=== PATIENT | female | born 1990 | race Caucasian/White ===

== ENCOUNTER → 2019-06-06 | Outpatient (CLI) | payer OTHER ==
[~2019-06-06] MED LIST: IBUP80TA PO; MAPA500T2 PO; NEXIUM PO; PRENTAB7 PO
--- NOTE | 2019-06-06 15:26 | REP ---
Right ankle: Five views. History: Injury. Findings: There is a small accessory ossicle adjacent to the lateral malleolar tip. There is mild lateral soft tissue swelling. The ankle mortise is intact. No fractures seen. There is a tiny accessory ossicle adjacent to the medial malleolus as well. Impression: Tiny old accessory ossicles. No fracture seen. Lateral soft tissue swelling. Otherwise negative. Electronically Signed by Danny Vallejo MD 06/06/2019 03:17 P
--- NOTE | 2019-06-06 15:40 | REP ---
Right foot series: Four views. History: Foot pain after injury. Findings: Four views right foot demonstrate overall normal mineralization. No fracture or subluxation is seen. Impression: Negative radiographs of the right foot. Electronically Signed by Danny Vallejo MD 06/06/2019 03:31 P
== END ==
LOC: M LRY 14:14
PROVIDERS: ATTEND Nurse Practitioner Family
DX: S99.911A Unspecified injury of right ankle, initial encounter (principal); S99.921A Unspecified injury of right foot, initial encounter; X58.XXXA Exposure to other specified factors, initial encounter; Y92.89 Other specified places as the place of occurrence of the external cause
CPT/HCPCS: 73610; 73630; G0463

== ENCOUNTER → 2019-06-27 | Outpatient (CLI) | payer OTHER ==
[2019-06-27 10:03] LABS: APPEARANCE, URINE CLEAR (CLEAR); BACTERIA, URINE AUTO NEGATIVE (NEGATIVE); BILIRUBIN, URINE AUTO NEGATIVE (NEGATIVE); BLOOD, URINE BLOOD NEGATIVE (NEGATIVE); COLOR, URINE YELLOW (YELLOW); GLUCOSE, URINE (UA) AUTO NEGATIVE (NEGATIVE); KETONE, URINE AUTO NEGATIVE (NEGATIVE); LEUKOCYTE ESTERASE, URINE AUTO NEGATIVE (NEGATIVE); MUCUS, URINE SMALL (NEGATIVE); NITRITE, URINE AUTO NEGATIVE (NEGATIVE); PROTEIN, URINE AUTO NEGATIVE (NEGATIVE); RBC, URINE AUTO 1 /HPF (0-3); SPECIFIC GRAVITY URINE AUTO 1.005 (1.002-1.035); SQUAMOUS EPITHELIAL CELL UR AU 0 /HPF (0-6); UROBILINOGEN, URINE AUTO 0.2 mg/dL (0.0-2.0); WBC, URINE AUTO 0 /HPF (0-3)
[2019-06-27 10:42] LABS: COMPLEMENT C3 108 MG/DL (90-180); COMPLEMENT C4 24 MG/DL (10-40); CPK CREATINE PHOSPHOKINASE 94 U/L (26-192)
[2019-06-27 10:43] LABS: CREATININE,RANDOM URINE 46.9 MG/DL; HEPATITIS B SURFACE ANTIBODY POSITIVE (POSITIVE); TOTAL PROTEIN,RANDOM URINE 6.9 MG/DL (0.0-12.0)
[2019-06-27 10:54] LABS: HEPATITIS B SURFACE ANTIGEN NEGATIVE (NEGATIVE)
[2019-06-27 11:22] LABS: HEPATITIS C VIRUS ABY INDEX 0.4 INDEX (<0.8)
[2019-07-02 14:10] LABS: ALDOLASE 3.7 U/L (3.3-10.3); ANA (HEP2) Negative (.); ANTI DS-DNA AB Negative (Negative); ANTI PARVO VIRUS LEVEL IGG 2.7 index (0.0-0.8); ANTI PARVO VIRUS LEVEL IgM 0.1 index (0.0-0.8); HEPATITIS B CORE ANTIBODY IGG Negative (Negative); RNP ANTIBODY < 0.2 AI (0.0-0.9); SMITHS ANTIBODY < 0.2 AI (0.0-0.9); SSA SJOGRENS A <0.2 AI (0.0-0.9); SSB SJOGRENS B <0.2 AI (0.0-0.9)
== END ==
LOC: M LAB 09:12
PROVIDERS: ATTEND Internal Medicine Rheumatology
DX: M25.541 Pain in joints of right hand (principal)

== ENCOUNTER 2020-06-02 07:03 | Day surgery (SDC) | payer OTHER ==
[~2020-06-02] VITALS: Ht 170.2 cm; Wt 65.8 kg
[~2020-06-02 07:03] MED LIST changes: +NORG0.25; +NS 1,000 ML IV ONE; +PANT40TA29
[2020-06-02] MEDS ORDERED: LIDOCAINE 2% 100MG/5ML SDV (FOR ANES.) As Ordered ONE (07:52)
[2020-06-02] MEDS ORDERED: propofoL 200 MG/20 ML VIAL As Ordered ONE ×2 (07:52→08:10)
[2020-06-02] MEDS ORDERED: ONDANSETRON 4MG/2ML VIAL As Ordered ONE (08:01)
--- NOTE | 2020-06-02 08:20 | ROOR ---
Patient Name: Kristyn Lopez Procedure Date: 06/02/2020 8:02 AM Date of : 1990 Age: 29 Room: [facility] Gender: Female Note Status: Finalized Procedure: Upper GI endoscopy + Balloon Dilatation Indications: Dysphagia, Heartburn Providers: True Vargas MD Referring MD: MARY HERNANDEZ MD Requesting Provider: Medicines: Monitored Anesthesia Care Complications: No immediate complications. Procedure: Pre-Anesthesia Assessment: - The heart rate, respiratory rate, oxygen saturations, blood pressure, adequacy of pulmonary ventilation, and response to care were monitored throughout the procedure. The Endoscope was introduced through the mouth, and advanced to the second part of duodenum. The upper GI endoscopy was accomplished without difficulty. The patient tolerated the procedure well. Findings: The Z-line was regular and was found 40 cm from the incisors. Mucosal changes including ringed esophagus were found in the lower third of the esophagus. A TTS dilator was passed through the scope. Dilation with a 15-16.5-18 mm balloon dilator was performed to 18 mm. The dilation site was examined and showed mild mucosal disruption. No other significant abnormalities were identified in a careful examination of the stomach. The exam of the duodenum was otherwise normal. Impression: - Z-line regular, 40 cm from the incisors. - Esophageal mucosal changes consistent with eosinophilic esophagitis. Dilated. - No specimens collected. - The examination was otherwise normal. Recommendation: - Patient has a contact number available for emergencies. The signs and symptoms of potential delayed complications were discussed with the patient. Return to normal activities tomorrow. Written discharge instructions were provided to the patient. - Resume previous diet. - Discharge patient to home. - Follow an antireflux regimen. - Continue present medications. - Repeat upper endoscopy PRN for retreatment. - Return to referring physician. - The findings and recommendations were discussed with the patient. True Vargas MD True Vargas MD 06/02/2020 8:19:41 AM Electronically signed by True Vargas MD Number of Addenda: 0 Note Initiated On: 06/02/2020 8:02 AM Estimated Blood Loss: Estimated blood loss: none.
[2020-06-02 08:40] VITALS: BP 115/70
== END 2020-06-02 09:10 | disposition home or self-care (01) ==
LOC: M OPP 07:03
PROVIDERS: ATTEND Internal Medicine Gastroenterology
DX: K22.8 Other specified diseases of esophagus (principal); R13.10 Dysphagia, unspecified; R12 Heartburn; K20.0 Eosinophilic esophagitis; Z79.899 Other long term (current) drug therapy
CPT/HCPCS: 43249; J2405

== ENCOUNTER 2020-08-11 10:10 | Day surgery (SDC) | payer OTHER ==
[~2020-08-11] VITALS: Ht 170.2 cm; Wt 65.3 kg
[~2020-08-11 10:10] MED LIST changes: +PROZ10CA7 PO
[2020-08-11] MEDS ORDERED: propofoL 500 MG/50 ML VIAL As Ordered ONE (12:12)
[2020-08-11] MEDS ORDERED: LIDOCAINE 2% 100MG/5ML SDV (FOR ANES.) As Ordered ONE (12:12)
[2020-08-11] MEDS ORDERED: fentaNYL 100 MCG/2 ML INJECTION (J3010) As Ordered ONE (12:12)
[2020-08-11] MEDS ORDERED: ONDANSETRON 4MG/2ML VIAL As Ordered ONE (12:14)
--- NOTE | 2020-08-11 12:30 | ROOR ---
Patient Name: Kristyn Lopez Procedure Date: 08/11/2020 12:06 PM Date of : 1990 Age: 30 Room: [facility] Gender: Female Note Status: Finalized Procedure: Upper GI endoscopy + Balloon Dilatation Indications: Dysphagia, Follow-up of eosinophilic esophagitis, For therapy of eosinophilic esophagitis Providers: True Vargas MD Referring MD: MARY HERNANDEZ MD Requesting Provider: Medicines: Monitored Anesthesia Care Complications: No immediate complications. Procedure: Pre-Anesthesia Assessment: - The heart rate, respiratory rate, oxygen saturations, blood pressure, adequacy of pulmonary ventilation, and response to care were monitored throughout the procedure. The Endoscope was introduced through the mouth, and advanced to the second part of duodenum. The upper GI endoscopy was accomplished without difficulty. The patient tolerated the procedure well. Findings: The Z-line was regular and was found 40 cm from the incisors. No other significant abnormalities were identified in a careful examination of the stomach. The exam of the duodenum was otherwise normal. A TTS dilator was passed through the scope. Dilation with a 15-16.5-18 mm balloon and an 18-19-20 mm balloon dilator was performed to 20 mm in the entire esophagus. The exam was otherwise without abnormality. Impression: - Z-line regular, 40 cm from the incisors. - The examination was otherwise normal. - Dilation performed in the entire esophagus. - No specimens collected. - The examination was otherwise normal. Recommendation: - Patient has a contact number available for emergencies. The signs and symptoms of potential delayed complications were discussed with the patient. Return to normal activities tomorrow. Written discharge instructions were provided to the patient. - Resume previous diet. - Discharge patient to home. - Continue present medications. - Return to GI office in 2 months. - The findings and recommendations were discussed with the patient. Procedure Code(s): --- Professional --- 66916, Esophagogastroduodenoscopy, flexible, transoral; with transendoscopic balloon dilation of esophagus (less than 30 mm diameter) Diagnosis Code(s): --- Professional --- R13.10, Dysphagia, unspecified K20.0, Eosinophilic esophagitis CPT copyright 2019 [employer]. All rights reserved. The codes documented in this report are preliminary and upon broadcast maintenance engineer review may be revised to meet current compliance requirements. True Vargas MD True Vargas MD 08/11/2020 12:30:04 PM Electronically signed by True Vargas MD Number of Addenda: 0 Note Initiated On: 08/11/2020 12:06 PM Estimated Blood Loss: Estimated blood loss: none.
[2020-08-11 13:03] VITALS: BP 110/70
== END 2020-08-11 13:05 | disposition home or self-care (01) ==
LOC: M OPP 10:10
PROVIDERS: ATTEND Internal Medicine Gastroenterology
DX: R13.10 Dysphagia, unspecified (principal); K20.0 Eosinophilic esophagitis; K21.9 Gastro-esophageal reflux disease without esophagitis; Z79.899 Other long term (current) drug therapy
CPT/HCPCS: 43249; J2405; J3010